=== PATIENT | female | born 1935 | race Caucasian/White ===

== ENCOUNTER 2016-12-23 12:57 | Inpatient (IN) | payer MEDICARE ==
[2016-12-23 12:59] VITALS: BMI 24.7
[2016-12-23] MEDS ORDERED: Sodium Chloride 0.9% 1,000 ML IV STA (13:16)
--- NOTE | 2016-12-23 13:19 | ED PDOC ---
Arrival/HPI - General Chief Complaint: Dizziness/Lightheaded Time Seen by Provider: 12/23/16 13:00 Historian: Patient, Family - History of Present Illness Narrative History of Present Illness (Text): 12/23/16 13:05 A 81 year old female, whose past medical history includes diabetes mellitus and rheumatoid arthritis, presents to the emergency department via EMS reportedly for near syncope. The patient reports she was at [employer] and she was standing when she felt suddenly weak and as per sisters at her side, "slumped to the chair with assistance" and was "staring out for a few minutes". No seizure activity reported. No respiratory distress noted. After "a few minutes" the patient was "speaking again and was acting herself just weak". Patient reports feeling weak on the way to [employer], and "possibly a little more tired over the past week". The patients sister admits that lately the patient has seem weaker than baseline and has been "a little out of it". The patient admits to having full memory of what occurred today and she denies any chest pain, headaches, shortness of breath, nausea, fevers, or any other complaints at this time. The patient sister notes that the patient does not always take her sugar medication. Time/Duration: Prior to Arrival Symptom Onset: Sudden Symptom Course: Other Activities at Onset: Light Context: Other (anabaptism ) Past Medical History - Provider Review Nursing Documentation Reviewed: Yes - Infectious Disease Hx of Infectious Diseases: None - Cardiac Hx Hypertension: Yes - Endocrine/Metabolic Hx Diabetes Mellitus Type 2: Yes - Musculoskeletal/Rheumatological Hx Arthritis: Yes - Psychiatric Hx Substance Use: No - Surgical History Hx Hysterectomy: Yes - Anesthesia Hx Anesthesia: Yes Hx Anesthesia Reactions: No Hx Malignant Hyperthermia: No Family/Social History - Physician Review Nursing Documentation Reviewed: Yes Family/Social History: Unknown Family HX Smoking Status: Never Smoked Hx Alcohol Use: No Hx Substance Use: No Allergies/Home Meds Allergies/Adverse Reactions: Allergies No Known Allergies Allergy (Verified 12/23/16 13:07) Home Medications: Home Meds Medication Instructions Recorded Confirmed Diclofenac Sodium [Voltaren] 75 mg PO BID PRN 12/23/16 12/23/16 Hydroxychloroquine Sulfate 200 mg PO BID 12/23/16 12/23/16 [Plaquenil] amLODIPine [Norvasc] 5 mg PO DAILY 12/23/16 12/23/16 hydroCHLOROthiazide [Microzide] 25 mg PO DAILY 12/23/16 12/23/16 metFORMIN [glucOPHAGE] 500 mg PO BID 12/23/16 12/23/16 Review of Systems - Review of Systems Constitutional: Fatigue, Fevers, Other (generalized weakness ) Eyes: absent: Vision Changes ENT: absent: Sore Throat, Rhinorrhea, Epistaxis, Sinus Congestion Respiratory: Cough. absent: SOB, Sputum, Wheezing Cardiovascular: Syncope. absent: Chest Pain, Calf Pain, CISNEROS Gastrointestinal: Nausea, Appetite Changes. absent: Abdominal Pain, Hematochezia, Hematemesis Genitourinary Female: absent: Dysuria, Frequency Musculoskeletal: absent: Back Pain Skin: absent: Rash Neurological: Dizziness. absent: Headache, Focal Weakness, Speech Changes, Disequilibrium, Seizure Endocrine: absent: Polyuria Hemo/Lymphatic: absent: Easy Bleeding Psychiatric: absent: Depression Physical Exam - Physical Exam Narrative Physical Exam (Text): 12/23/16 13:13 Head: Atraumatic. Normocephalic. Eyes: PERRL. EOMI. Conjunctivae are not pale. ENT: Mucous membranes are dry. Oropharynx is clear and symmetric. Neck: Supple. Full ROM. No JVD. No lymphadenopathy. No meningeal signs. Cardiovascular: Regular rate. Regular rhythm. Systolic murmur. Pulmonary/Chest: No evidence of respiratory distress. Clear to auscultation bilaterally. No wheezing, rales or rhonchi. Abdominal: Soft and non-distended. There is no tenderness. No rebound, guarding, or rigidity. No organomegaly. Good bowel sounds. No pulsatile masses. Back: No CVA tenderness. No midline tenderness. Rectal: no gross bleeding noted Extremities: No edema. No cyanosis. No clubbing. Full range of motion in all extremities. No calf tenderness. Skin: Skin is warm and dry. No petechiae. No purpura. Neurological: Alert, awake, and oriented to person, place, time, and situation. Normal speech. No facial droop. Motor and sensory exam intact. Psychiatric: Good eye contact. Normal interaction, affect, and behavior. Vital Signs Reviewed: Yes Vital Signs Temp Pulse Resp BP Pulse Ox 12/23/16 15:13 98.9 F 86 18 145/86 98 12/23/16 14:38 98.1 F 12/23/16 13:01 100.3 F H 104 H 19 129/67 99 Temperature: Febrile Appearance: Positive for: Ill-Appearing Pain Distress: None Mental Status: Positive for: Alert and Oriented X 3 Medical Decision Making ED Course and Treatment: 12/23/16 13:12 Impression: 81 yo female with pmhx of diabetes, presents with near syncope. Reports feeling weak for several days. Currently no pain or discomfort. Differential Diagnosis included but are not limited to: A 81 year old female with generalized weakness. Plan: -- EKG -- Venous Blood Gas Shock -- Labs -- Chest X-ray -- IV Fluids, Tylenol -- Blood Culture, Urine Culture -- Saline Lock -- Urinalysis -- Reassess and disposition Progress Notes: Patient is a 81 yo female past medical hx of diabetes, presents with sisters after near syncopal event at [employer]. Patient upon arrival to ED is alert, awake , with no focal deficits and is "acting like her normal self" as per sisters. Patient admits to feeling weak and "hot and cold" for "a few days". She has low grade fever in ED but is nontoxic appearing. Denies any prior history of known CAD or CVA. Her neuro exam is intact with serial exams. NO complete LOC reported. No symptomatic arrhythmias noted while in ED. EKG and initial troponin unremarkable. IV fluids and tylenol given and patient heart rate repeated is 88. CXR unremarkable. UA ? uti. IV antibitoics ordered. Initial lactate unremarkable and BP currently stable. Will admit for near syncope, possible UTI/infection. Given diabetes and episode will admit to monitored bed, consult cardio, neuro, and ID. Case d/w [facility] Burnham[facility] accepts admission to his service. 12/23/16 15:43 - Lab Interpretations Lab Results: 12/23/16 13:28 12/23/16 13:28 Lab Results 12/23/16 14:04: Urine Color Yellow, Urine Appearance Slight-cloudy, Urine pH 6.0 , Ur Specific [place] 1.025, Urine Protein 100 H, Urine Glucose (UA) Negative, Urine Ketones Trace H, Urine Blood Negative, Urine Nitrate Negative, Urine Bilirubin Small H, Urine Urobilinogen 1.0 H, Ur Leukocyte Esterase Small H, Urine RBC 0 - 2, Urine WBC 1 - 3, Ur Epithelial Cells 0 - 2 12/23/16 13:28: Sodium 137, Chloride 100, Potassium 3.9, Carbon Dioxide 23, Anion Gap 18, BUN 24 H, Creatinine 1.3, Est GFR ( Amer) 48, Est GFR (Non- Af Amer) 40, Random Glucose 212 H, Calcium 9.7, Phosphorus 2.9, Magnesium 1.7, Total Bilirubin 1.3, AST 24, ALT 24, Alkaline Phosphatase 99, Lactate Dehydrogenase 393, Total Creatine Kinase 37, Troponin I < 0.01, NT-Pro-B Natriuret Pep 404, Total Protein 8.2, Albumin 4.1, Globulin 4.1, Albumin/ Globulin Ratio 1.0 L 12/23/16 13:28: pO2 36, VBG pH 7.37, VBG pCO2 44.0, VBG HCO3 25.4, VBG Total CO2 26.8, VBG O2 Sat (Calc) 75.4 H, VBG Base Excess -0.1 L, VBG Potassium 4.0, Sodium 135.0, Chloride 101.0, Glucose 222 H, Lactate 1.7, FiO2 21.0, Venous Blood Potassium 4.0 12/23/16 13:28: PT 12.4 H, INR 1.15 H, APTT 30.7 12/23/16 13:28: WBC 8.7, RBC 3.89, Hgb 11.2 L, Hct 33.0 L, MCV 84.8, MCH 28.8, MCHC 33.9, RDW 13.0, Plt Count 123, MPV 11.7 H, Gran % 81.4 H, Lymph % (Auto) 10.4 L, [place] % (Auto) 6.6 H, Eos % (Auto) 1.4 L, Baso % (Auto) 0.2, Gran # 7.10 H, Lymph # 0.9 L, [place] # 0.6, Eos # 0.1, Baso # 0.02 12/23/16 13:13: POC Glucose (mg/dL) 232 H - RAD Interpretation Radiology Orders: 12/23/16 13:15 CHEST PORTABLE [RAD] Stat 12/23/16 13:40 HEAD W/O CONTRAST [CT] Stat Chair Springer: Radiologist - EKG Interpretation EKG Interpretation (Text): EKG at 13:18 normal sinus rhythm rate of [address] elevations Interpreted by ED Physician: Yes Type: 12 lead EKG - Medication Orders Current Medication Orders: Discontinued Medications Acetaminophen (Tylenol 325mg Tab) 650 mg PO ONCE STA Stop: 12/23/16 13:17 Last Admin: 12/23/16 13:38 Dose: 650 mg Re-Assess: JACKIE Pain/Vitals Document 12/23/16 14:38 EWO (Rec: 12/23/16 15:19 EWO [id number]) Vitals Temperature (97.6 F-99.6 F) 98.1 F Temperature Source Oral Sodium Chloride (Sodium Chloride 0.9%) 1,000 mls @ 1,000 mls/hr IV .Q1H STA Stop: 12/23/16 14:15 Last Admin: 12/23/16 13:38 Dose: 1,000 mls/hr Ceftriaxone Sodium (Rocephin 1 Gram Ivpb) 1 g in 100 mls @ 200 mls/hr IVPB ONCE STA PRN Reason: Protocol Stop: 12/23/16 15:18 - Scribe Statement The provider has reviewed the documentation as recorded by the Zeus Feliciano Provider Scribe Attestation: All medical record entries made by the Scribe were at my direction and personally dictated by me. I have reviewed the chart and agree that the record accurately reflects my personal performance of the history, physical exam, medical decision making, and the department course for this patient. I have also personally directed, reviewed, and agree with the discharge instructions and disposition. Disposition/Present on Arrival - Present on Arrival Any Indicators Present on Arrival: Yes History of DVT/PE: No History of Uncontrolled Diabetes: Yes Urinary Catheter: No History of Decub. Ulcer: No History Surgical Site Infection Following: None - Disposition Have Diagnosis and Disposition been Completed?: Yes Diagnosis: Near syncope, Hyperglycemia, Fever Disposition: HOSPITALIZED Disposition Time: 14:40 Patient Plan: Admission, Observation, Telemetry Condition: FAIR
--- NOTE | 2016-12-23 13:37 | RAD ---
HISTORY: Sepsis Patient COMPARISON: No prior. FINDINGS: LUNGS: No active pulmonary disease. PLEURA: No significant pleural effusion identified, no pneumothorax apparent. CARDIOVASCULAR: Normal. OSSEOUS STRUCTURES: No significant abnormalities. VISUALIZED UPPER ABDOMEN: Normal. OTHER FINDINGS: None. IMPRESSION: No active disease.
[2016-12-23 13:42] LABS: BASO # 0.02 K/mm3 (0.0-2.0); BASO % 0.2 % (0.0-3.0); EOS # 0.1 (0.0-0.7); EOS % 1.4 % (1.5-5.0); GRAN # 7.1 (1.4-6.5); GRAN % 81.4 % (50.0-68.0); LYMPH # 0.9 (1.2-3.4); LYMPH % 10.4 % (22.0-35.0); MEAN CELL VOLUME 84.8 fl (80.0-105.0); MEAN CORPUSCULAR HEMOGLOBIN 28.8 pg (25.0-35.0); MEAN CORPUSCULAR HGB CONC 33.9 g/dl (31.0-37.0); MEAN PLATELET VOLUME 11.7 fl (7.0-11.0); MONO # 0.6 (0.1-0.6); MONO % 6.6 % (1.0-6.0); VENOUS BLOOD GAS BASE EXCESS -0.1 mmol/L (0.0-2.0); VENOUS BLOOD PH 7.37 (7.32-7.43); WHITE BLOOD COUNT 8.7 10^3/ul (4.5-11.0)
[2016-12-23 13:54] LABS: ALKALINE PHOSPHATASE 99 U/L (38-126); ALT/SGPT 24 U/L (7-56); AST/SGOT 24 U/L (14-36); BILIRUBIN,TOTAL 1.3 mg/dL (0.2-1.3); BLOOD UREA NITROGEN 24 mg/dL (7-21); CALCIUM 9.7 mg/dL (8.4-10.5); CARBON DIOXIDE 23 mmol/L (21-33); CHLORIDE 100 mmol/L (98-107); GFR AFRICAN-AMERICAN 48; GLUCOSE,RANDOM 212 mg/dL (70-110); MAGNESIUM 1.7 mg/dL (1.7-2.2); PHOSPHOROUS 2.9 mg/dL (2.5-4.5); POTASSIUM 3.9 mmol/L (3.6-5.0); SODIUM 137 mmol/L (132-148); TOTAL PROTEIN 8.2 g/dL (5.8-8.3)
[2016-12-23 14:08] LABS: TROPONIN I < 0.01 ng/mL
[2016-12-23 14:16] LABS: URINE BILIRUBIN SMALL (NEGATIVE); URINE BLOOD NEGATIVE (NEGATIVE); URINE GLUCOSE (UA) NEGATIVE (NEGATIVE); URINE KETONE TRACE mg/dL (NEGATIVE); URINE LEUKOCYTE ESTERASE SMALL Leu/uL (NEGATIVE); URINE PROTEIN 100 mg/dL (<30 mg/dL)
[2016-12-23 14:20] LABS: URINE APPEARANCE SLIGHT-CLOUDY (CLEAR); URINE COLOR YELLOW (YELLOW)
--- NOTE | 2016-12-23 14:26 | CT ---
PROCEDURE: CT HEAD WITHOUT CONTRAST. HISTORY: near syncope COMPARISON: None available. TECHNIQUE: Axial computed tomography images were obtained through the head/brain without intravenous contrast. Radiation dose: Total exam DLP = 725 mGy-cm. This CT exam was performed using one or more of the following dose reduction techniques: Automated exposure control, adjustment of the mA and/or kV according to patient size, and/or use of iterative reconstruction technique. FINDINGS: HEMORRHAGE: No intracranial hemorrhage. BRAIN: No mass effect or edema. No atrophy or chronic microvascular ischemic changes. VENTRICLES: Unremarkable. No hydrocephalus. CALVARIUM: Unremarkable. PARANASAL SINUSES: Unremarkable as visualized. No significant inflammatory changes. MASTOID AIR CELLS: Unremarkable as visualized. No inflammatory changes. OTHER FINDINGS: None. IMPRESSION: No acute findings
[2016-12-23 14:27] LABS: URINE EPITHELIAL CELLS 0 - 2 /hpf (0-5); URINE RBC 0 - 2 /hpf (0-2)
[2016-12-23 14:34] LABS: INR 1.15 (0.93-1.08); PARTIAL THROMBOPLASTIN TIME 30.7 Seconds (23.7-30.8)
[2016-12-23] MEDS ORDERED: cefTRIAXone 1 gm 1 G/100 ML BAG IVPB STA (14:49)
[2016-12-23] MEDS ORDERED: Pneumococcal 23-Valent Vaccine IM ONE (18:18)
[2016-12-23] MEDS: Sodium Chloride 0.45% 1,000 ML IV SCH (22:03)
[2016-12-23] MEDS: Insulin Reg-HIGH-Coverage SC SCH (22:05)
--- NOTE | 2016-12-23 23:50 | CON ---
HISTORY OF PRESENT ILLNESS: This is a 81-year-old black female with a past medical history of diabetes, rheumatoid arthritis and came to hospital emergency room with sudden feeling of weakness and the patient's slumped in the chair and did not hit her head. No seizure activity. No urinary incontinence. The patient reports feeling weak on the way to [place] and possibly feels like tired and weak, did not lose consciousness. PAST MEDICAL HISTORY: Diabetes, rheumatoid arthritis. REVIEW OF SYSTEMS: Ten-point review of system was negative except as noted above. PHYSICAL EXAMINATION HEENT: Normocephalic, atraumatic. NECK: Supple. NEUROLOGIC: She is alert, awake and oriented x3. No aphasia. Cranial nerves II to XII are tested. Pupils reactive. EOM intact. Visual field full. No facial asymmetry. Tongue is midline. Motor examination: Moves all extremities equally. Tone normal. Deep tendon reflexes 1+. Both plantars are downgoing. Sensory appears intact. Cerebral: Gait deferred. IMPRESSION: Syncope, less likely seizure, possibly orthostatic. CAT scan of the head was done which was reported negative. Workup in progress. We will follow up. Sagar Dickson MD
--- NOTE | 2016-12-24 05:56 | CP.PCM.PN ---
Subjective - Date & Time of Evaluation Date of Evaluation: 12/24/16 Time of Evaluation: 05:56 - Subjective Subjective: draft Temp 100.8*F rx, tylenol as ordered. Objective - Vital Signs/Intake and Output Vital Signs (last 24 hours): Temp Pulse Resp BP Pulse Ox 100.2 F H 88 20 118/67 96 12/24/16 05:32 12/24/16 05:32 12/24/16 05:32 12/24/16 05:32 12/24/16 05:32 Intake and Output: 12/23/16 12/24/16 18:59 06:59 Intake Total 360 Balance 360 - Medications Medications: Current Medications Acetaminophen (Tylenol 325mg Tab) 650 mg PO Q4H PRN PRN Reason: Temperature Sodium Chloride (Sodium Chloride 0.45%) 1,000 mls @ 30 mls/hr IV .Q24H [facility] Last Admin: 12/23/16 22:03 Dose: 30 mls/hr Ceftriaxone Sodium (Rocephin 1 Gram Ivpb) 1 gm in 100 mls @ 100 mls/hr IVPB DAILY ROBERT PRN Reason: Protocol Insulin Human Regular (Humulin R High) 0 units SC ACHS ROBERT PRN Reason: Protocol Last Admin: 12/23/16 22:05 Dose: Not Given Metformin HCl (Glucophage) 500 mg PO BRKDIN ROBERT - Labs Labs: PT 12.4 Seconds (9.9-11.8) H 12/23/16 13:28 INR 1.15 (0.93-1.08) H 12/23/16 13:28 APTT 30.7 Seconds (23.7-30.8) 12/23/16 13:28
[2016-12-24] MEDS: Insulin Reg-HIGH-Coverage SC SCH ×4 (08:09→22:07)
[2016-12-24 08:56] LABS: HEMATOCRIT 31.5 % (36.0-48.0); MEAN CELL VOLUME 84.2 fl (80.0-105.0); MEAN CORPUSCULAR HEMOGLOBIN 28.3 pg (25.0-35.0); MEAN CORPUSCULAR HGB CONC 33.7 g/dl (31.0-37.0); RED CELL DISTRIBUTION WIDTH 12.9 % (11.5-14.5)
[2016-12-24 09:06] LABS: ALB/GLOB RATIO 0.9 (1.1-1.8); CALCIUM 9.2 mg/dL (8.4-10.5); POTASSIUM 4.1 mmol/L (3.6-5.0); TOTAL PROTEIN 7.5 g/dL (5.8-8.3)
[2016-12-24] MEDS ORDERED: Vancomycin 1gm in NS 250ml 1 GM/250 ML BAG IVPB STA (09:32)
[2016-12-24] MEDS: cefTRIAXone 1 gm 1 GM/100 ML BAG IVPB SCH (09:35)
--- NOTE | 2016-12-24 10:26 | HP ---
HISTORY OF PRESENT ILLNESS: I saw Sosa in her room at [facility]. I was called down to look at her by the ER. She comes in with a history of being at [employer], felt suddenly weak, slumped over, she was staring for few minutes, she was caught by family, it lasted a few minutes, she did not speak and started speaking again and acting herself but she was weak. She was also little bit tired over the past week, little out of it, but right now she is doing better, full memory, she is comfortable. PAST MEDICAL HISTORY: Include diabetes, rheumatoid arthritis, hypertension. PAST SURGICAL HISTORY: Has had hysterectomy. FAMILY HISTORY: Hypertension and diabetes in her family. SOCIAL HISTORY: She never smoked. No alcohol, no drugs. ALLERGIES: No known drug allergies. MEDICATIONS: She takes hydroxychloroquine for the arthritis, Norvasc for the blood pressure, hydrochlorothiazide and metformin for diabetes. REVIEW OF SYSTEMS: She is very tired. She had fevers, generalized weakness. No acute vision changes or hearing changes. No sore throat, no neck pain, no chest pain, calf pain. No shortness of breath with exertion. No palpitations. She had a little bit of a cough, but no coughing now and she said that it went away. No shortness of breath, sputum, or wheezing. She was little bit nauseous when this happened, little bit poor appetite but she has just finished eating dinner and she ate the whole plate. No abdominal pain, diarrhea, or constipation. No problems urinating. No back pain. No skin rashes or ulcers. She was a bit dizzy, kind was out of it. No headache or speech changes. She was staring for bit. No increase in urination. No sweating. No easy bleeding. No depression or anxiety. PHYSICAL EXAMINATION VITAL SIGNS: She had a 100.3 temp when she came in, with a 104 pulse, 19 respiratory rate, 129/67 blood pressure and 145/86 blood pressure, 99% O2 sat on room air. HEENT: Extraocular muscles are intact. Normocephalic and atraumatic. Pupils equal and reactive to light and accommodation. Conjunctivae are clear. Mucous membranes are moist at this time. No IV fluids, but when she came in, they were dry. NECK: Supple. HEART: Regular rate. 2/6 systolic ejection murmur. LUNGS: Clear to auscultation. Fair effort. No wheezes, no rhonchi, no rales. ABDOMEN: Soft, nontender. Positive bowel sounds. No guarding, no rebound. EXTREMITIES: No edema. She can use all four extremities well. Good range of motion. SKIN: Warm and dry. NEUROLOGIC: Alert, awake, and oriented x3 at this time. Normal speech. No facial droops. Tongue is midline. LYMPH: Thyroid midline. No palpable or appreciative lymphadenopathy. She had a near syncope, feeling weak for few days. LABORATORY DATA: She had multiple tests done. 8.7 white count, 11.2 hemoglobin, 33 hematocrit with 123 platelets. 1.15 INR, 137 sodium, potassium 3.9, BUN 24 little up, creatinine 1.3 little up, GFR is 40, sugar is 232 and 212, calcium is 9.7, phosphorus is 2.9, magnesium is 1.7, total bilirubin is 1.3, AST is 24, ALT is 24, alkaline phosphatase is 99, and lactic dehydrogenase is 393, total creatine kinase is 37. Troponin I is less than 0.01. BMP is 404, total protein is 3.2, albumin is 4.1. Urine has trace ketones, small leukocyte esterase. She reports head CT and chest x-ray were okay, is being put in for observation for near syncope, possible urinary tract infection, and history of diabetes and hypertension. I will put her on IV fluids of 30, put her on the diabetes medication, Rocephin for the urine. I am not going to put her on the blood pressure medicine yet unless blood pressure was 115/66 and feel that putting her back on medication of amlodipine, hydrochlorothiazide, which has made the situation worse, might be too strong for her at this time. We have urine cultures and blood cultures pending. She is presently comfortably in bed, ate dinner well, have IV fluids running, checking her blood sugars, will have consult with Neuro, Cardio and Infectious Disease. Rayray Burnham DO
--- NOTE | 2016-12-24 10:53 | PN ---
DATE: SUBJECTIVE: I saw her resting comfortably this morning in bed. She is still not herself. She still feels little bit off. Not much of an appetite, will be weak overall. PHYSICAL EXAMINATION: VITAL SIGNS: 100.8 temperature, 88 pulse, 118/67 blood pressure, 20 respiratory rate, 96% O2 sat on room air. GENERAL: She has come in and feel off and had to be caught due to her falling from a syncopal episode. She still not better. She states she is not feeling. She is on Rocephin for UTI. HEENT: Head is atraumatic, normocephalic. Throat is moist. NECK: Supple. HEART: Regular rate. LUNGS: Clear to auscultation. ABDOMEN: Soft. EXTREMITIES: No edema. MEDICATIONS: She is currently on Glucophage, insulin, Rocephin, IV fluids, Tylenol. LABORATORY DATA: She has labs pending this morning. Her last blood sugar was 187. She had a consult with Dr. Dickson. We will order a CAT scan of the brain which was fine and neurologically it could be orthostatic or infectious. Chest x-ray with no active disease. House doctor was called in to give Tylenol last night. Awaiting cardio and infectious disease to give the input. I did change her to an inpatient as opposed to because the temperature is persisting on IV Rocephin. I will increase IV fluids a little bit. I will order physical therapy. She looks weak. She might need different antibiotics. Awaiting for blood cultures and urine cultures to populate. ASSESSMENT: She is here for syncopal, urinary tract infection, diabetes, rule out sepsis. Rayray Burnham DO [facility]
--- NOTE | 2016-12-24 13:15 | CP.PCM.CON ---
History of Present Illness - History of Present Illness History of Present Illness: 81 year old female with PMH of DM, rheumatoid arthritis, HTN came in to [facility] because of generalized weakness and near syncope, which happened while she was in [employer]ism yesterday. Prior to this, she has been feeling more tired than usual for the past week and she started having dry cough since about 5-6 days ago, which has worsened in the past 2-3 days. She had chills as well. She denies sore throat, no no rhinorrhea, no abdominal pain, no dysuria, no nausea or vomiting, no headache, no chest pain, no diarrhea. In the ED, she was noted to have fever and Infectious diseases consult is requested to further evaluate and manage. Review of Systems - Review of Systems All systems: reviewed and no additional remarkable complaints except (as per HPI ) Past Patient History - Infectious Disease Hx of Infectious Diseases: None - Past Social History Smoking Status: Never Smoked - CARDIAC Hx Hypertension: Yes - ENDOCRINE/METABOLIC Hx Diabetes Mellitus Type 2: Yes - MUSCULOSKELETAL/RHEUMATOLOGICAL Hx Falls: No - PSYCHIATRIC Hx Substance Use: No - SURGICAL HISTORY Hx Hysterectomy: Yes - ANESTHESIA Hx Anesthesia: Yes Hx Anesthesia Reactions: No Hx Malignant Hyperthermia: No Meds Allergies/Adverse Reactions: Allergies Allergy/AdvReac Type Severity Reaction Status Date / Time No Known Allergies Allergy Verified 12/23/16 13:07 - Medications Medications: Current Medications Sodium Chloride (Sodium Chloride 0.45%) 1,000 mls @ 30 mls/hr IV .Q24H ROBERT Ceftriaxone Sodium (Rocephin 1 Gram Ivpb) 1 gm in 100 mls @ 100 mls/hr IVPB DAILY ROBERT PRN Reason: Protocol Insulin Human Regular (Humulin R High) 0 units SC ACHS ROBERT PRN Reason: Protocol Metformin HCl (Glucophage) 500 mg PO BRKDIN [facility] Physical Exam - Constitutional Appears: Non-toxic, No Acute Distress - Head Exam Head Exam: NORMAL INSPECTION - ENT Exam ENT Exam: Mucous Membranes Moist - Neck Exam Neck exam: Negative for: Lymphadenopathy, Meningismus - Respiratory Exam Respiratory Exam: Decreased Breath Sounds - Cardiovascular Exam Cardiovascular Exam: +S1, +S2 - GI/Abdominal Exam GI & Abdominal Exam: Soft. absent: Tenderness Results - Vital Signs Recent Vital Signs: Last Vital Signs Temp 99.4 F 12/23/16 18:07 Pulse 72 12/23/16 18:07 Resp 18 09/10/17 18:07 BP 115/66 12/23/16 18:07 Pulse Ox 98 12/23/16 15:13 - Labs Result Diagrams: 12/24/16 08:52 12/24/16 08:52 Assessment & Plan - Assessment and Plan (Free Text) Plan: Assessment Systemic Inflammatory Response Syndrome, fever R/O acute bronchitis, R/O systemic viral illness DM rheumatoid arthritis HTN Plan Started patient on Rocephin and doxycycline pending blood, urine cx, PCT; CXR does not show infiltrates, will check rapid Influenza test will monitor clinically
--- NOTE | 2016-12-24 17:23 | CARD ---
APPROVED REPORT EKG Measurement Heart [id number] <Conclusion> Poor data quality, interpretation may be adversely affected Normal sinus rhythm Normal ECG
[2016-12-24] MEDS: Sodium Chloride 0.45% 1,000 ML IV SCH (18:31)
--- NOTE | 2016-12-24 20:28 | US ---
HISTORY: Leg pain and swelling. Evaluate for DVT PHYSICIAN(S): Coleman Kingsley MD. TECHNIQUE: Duplex sonography and color-flow Doppler with graded compression were used to evaluate the deep venous systems of both lower extremities. FINDINGS: The visualized deep venous systems of both lower extremities are sonographically normal and compressible. Normal wave forms and augmentation are seen. There is no sonographic evidence for deep venous thrombosis in the visualized segments of both lower extremities. IMPRESSION: No sonographic evidence for deep venous thrombosis in the visualized segments of both lower extremities.
--- NOTE | 2016-12-24 21:22 | CP.PCM.CON ---
<Carl Almanza - Last Filed: 12/24/16 20:57> History of Present Illness - History of Present Illness History of Present Illness: Neurology Consult Note for Dr. Dickson Service Consulted for: near-syncope HPI: This is a 81 yo AA F with PMH of DM and RA who was brought to [facility] [place] after an episode of "spacing out" while in [employer]. As per patient, she was standing in a pew when the episode occurred, she retained consciousness but was unable to respond or react to stimuli and to others trying to speak to her, and began to slump. She was helped to a sitting position by surrounding family, and remained in this state for several minutes. She then became responsive again, and she reports only residual weakness, but denies numbness, dizziness, memory loss, or confusion. She does admit to feeling weak and somewhat fatigued prior to [facility]aritan that day, and her family reported in the ED that she has seemed "out of it" for the last several days. Currently, states that she feels improved, and has no acute complaints, including dizziness, weakness, lightheadedness, chest pain, shortness of breath, vision changes, focal weakness/paresthesias, or nausea/emesis. All other ROS in 12-point systems review were negative. 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 In the ED, and overnight, patient became febrile (Tmax 100.8F). UA was obtained and was suspicious for UTI. On repeat questioning, patient does report an increased urinary frequency for several days, but thought it was because she was drinking too much water. Denies dysuria or hematuria. PMH: DM, RA PSH: Hysterectomy FHx: Unknown (patient does not know of any medical hx parents had) SHx: Denies tobacco, EtOH, illicits/IVDA.' PMD: None Review of Systems - Review of Systems All systems: reviewed and no additional remarkable complaints except (as per HPI ) Past Patient History - Infectious Disease Hx of Infectious Diseases: None - Past Social History Smoking Status: Never Smoked - CARDIAC Hx Hypertension: Yes - ENDOCRINE/METABOLIC Hx Diabetes Mellitus Type 2: Yes - MUSCULOSKELETAL/RHEUMATOLOGICAL Hx Falls: No - PSYCHIATRIC Hx Substance Use: No - SURGICAL HISTORY Hx Hysterectomy: Yes - ANESTHESIA Hx Anesthesia: Yes Hx Anesthesia Reactions: No Hx Malignant Hyperthermia: No Meds Allergies/Adverse Reactions: Allergies Allergy/AdvReac Type Severity Reaction Status Date / Time No Known Allergies Allergy Verified 12/23/16 13:07 - Medications Medications: Current Medications Acetaminophen (Tylenol 325mg Tab) 650 mg PO Q4H PRN PRN Reason: Temperature Doxycycline Hyclate (Doryx) 100 mg PO Q12 ROBERT PRN Reason: Protocol Last Admin: 12/24/16 16:40 Dose: 100 mg Sodium Chloride (Sodium Chloride 0.45%) 1,000 mls @ 30 mls/hr IV .Q24H ROBERT Last Admin: 12/24/16 18:31 Dose: Not Given Ceftriaxone Sodium (Rocephin 1 Gram Ivpb) 1 gm in 100 mls @ 100 mls/hr IVPB DAILY ROBERT PRN Reason: Protocol Last Admin: 12/24/16 09:35 Dose: 100 mls/hr Insulin Human Regular (Humulin R High) 0 units SC ACHS ROBERT PRN Reason: Protocol Last Admin: 12/24/16 16:40 Dose: 4 units Metformin HCl (Glucophage) 500 mg PO BRKDIN ROBERT Last Admin: 12/24/16 16:40 Dose: 500 mg Physical Exam - Constitutional Appears: Well, Non-toxic, No Acute Distress - Head Exam Head Exam: ATRAUMATIC, NORMAL INSPECTION, NORMOCEPHALIC - Eye Exam Eye Exam: EOMI, Normal appearance, PERRL. absent: Conjunctival injection, Scleral icterus Pupil Exam: NORMAL ACCOMODATION, PERRL. absent: Fixed, Irregular, Unequal - ENT Exam ENT Exam: Mucous Membranes Moist, Normal Exam - Neck Exam Neck exam: Positive for: Full Rom, Normal Inspection. Negative for: Tenderness - Respiratory Exam Respiratory Exam: Clear to Auscultation Bilateral, NORMAL BREATHING PATTERN. absent: Accessory Muscle Use, Chest Wall Tenderness, Decreased Breath Sounds, Rales, Rhonchi, Wheezes - Cardiovascular Exam Cardiovascular Exam: REGULAR RHYTHM, RRR, +S1, +S2. absent: Bradycardia, Tachycardia, Irregular Rhythm, JVD - GI/Abdominal Exam GI & Abdominal Exam: Normal Bowel Sounds, Soft. absent: Diminished Bowel Sounds , Distended, Firm, Guarding, Hyperactive Bowel Sounds, Hypoactive Bowel Sounds, Rigid, Tenderness - Extremities Exam Extremities exam: Positive for: pedal pulses present (faintly palpable dorsalis pedis bilaterally, +1 radials bilaterally). 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 - Psychiatric Exam Psychiatric exam: Normal Affect, Normal Mood - Skin Skin Exam: Dry, Intact, Normal Color, Warm Results - Vital Signs Recent Vital Signs: Last Vital Signs Temp 97.9 F 12/24/16 12:00 Pulse 61 12/24/16 18:00 Resp 18 12/24/16 12:00 BP 125/75 12/24/16 12:00 Pulse Ox 96 12/24/16 06:00 - Labs Result Diagrams: 12/24/16 08:52 12/24/16 08:52 Labs: Laboratory Results - last 24 hr 12/24/16 12/24/16 12/24/16 08:52 08:52 12:28 WBC 7.0 RBC 3.74 Hgb 10.6 L Hct 31.5 L MCV 84.2 MCH 28.3 MCHC 33.7 RDW 12.9 Plt Count 124 MPV 11.0 Sodium 135 Potassium 4.1 Chloride 102 Carbon Dioxide 23 Anion Gap 14 BUN 22 H Creatinine 1.2 Est GFR ( Amer) 52 Est GFR (Non-Af Amer) 43 POC Glucose (mg/dL) 264 H Random Glucose 226 H Calcium 9.2 Total Bilirubin 1.0 AST 24 ALT 27 Alkaline Phosphatase 83 Total Protein 7.5 Albumin 3.5 Globulin 3.9 Albumin/Globulin Ratio 0.9 L Procalcitonin Influenza Typ A,B (EIA) 12/24/16 12/24/16 12/24/16 13:51 14:35 15:55 WBC RBC Hgb Hct MCV MCH MCHC RDW Plt Count MPV Sodium Potassium Chloride Carbon Dioxide Anion Gap BUN Creatinine Est GFR ( Amer) Est GFR (Non-Af Amer) POC Glucose (mg/dL) 200 H Random Glucose Calcium Total Bilirubin AST ALT Alkaline Phosphatase Total Protein Albumin Globulin Albumin/Globulin Ratio Procalcitonin 1.17 H Influenza Typ A,B (EIA) Negative for flu a/b Assessment & Plan - Assessment and Plan (Free Text) Assessment: This is a 81 yo AA F with PMH of DM and RA who was brought to [facility] [place] after a near- syncopal episode at her [employer]. Her symptoms are resolved currently. Her near-syncopal sx are most likely orthostatic 2/2 decreased PO fluid intake and 2/2 to infectious etiology (UTI). No neurologic component appears present, and head CT was negative for acute findings. Plan: 1) Maintain blood glucose 140-180 2) Gently hydrate 3) PT/OT 4) f/u urine culture results in setting of UTI with near-syncopal episodes; management as per ID and Primary team 5) Orthostatics Patient reviewed and discussed with attending, Dr. Dickson. <Ramon Dickson - Last Filed: 12/25/16 00:27> Meds - Medications Medications: Current Medications Acetaminophen (Tylenol 325mg Tab) 650 mg PO Q4H PRN PRN Reason: Temperature Last Admin: 12/24/16 22:57 Dose: 650 mg Doxycycline Hyclate (Doryx) 100 mg PO Q12 ROBERT PRN Reason: Protocol Last Admin: 12/24/16 22:07 Dose: 100 mg Sodium Chloride (Sodium Chloride 0.45%) 1,000 mls @ 30 mls/hr IV .Q24H ROBERT Last Admin: 12/24/16 18:31 Dose: Not Given Ceftriaxone Sodium (Rocephin 1 Gram Ivpb) 1 gm in 100 mls @ 100 mls/hr IVPB DAILY ROBERT PRN Reason: Protocol Last Admin: 12/24/16 09:35 Dose: 100 mls/hr Insulin Human Regular (Humulin R High) 0 units SC ACHS ROBERT PRN Reason: Protocol Last Admin: 12/24/16 22:07 Dose: Not Given Metformin HCl (Glucophage) 500 mg PO BRKDIN ROBERT Last Admin: 12/24/16 16:40 Dose: 500 mg Results - Vital Signs Recent Vital Signs: Last Vital Signs Temp 101.7 F H 12/25/16 00:01 Pulse 88 12/25/16 00:01 Resp 20 12/25/16 00:01 BP 118/74 12/25/16 00:01 Pulse Ox 95 12/25/16 00:01 - Labs Result Diagrams: 12/24/16 08:52 12/24/16 08:52 Labs: Laboratory Results - last 24 hr 12/24/16 12/24/16 12/24/16 08:52 08:52 12:28 WBC 7.0 RBC 3.74 Hgb 10.6 L Hct 31.5 L MCV 84.2 MCH 28.3 MCHC 33.7 RDW 12.9 Plt Count 124 MPV 11.0 Sodium 135 Potassium 4.1 Chloride 102 Carbon Dioxide 23 Anion Gap 14 BUN 22 H Creatinine 1.2 Est GFR ( Amer) 52 Est GFR (Non-Af Amer) 43 POC Glucose (mg/dL) 264 H Random Glucose 226 H Calcium 9.2 Total Bilirubin 1.0 AST 24 ALT 27 Alkaline Phosphatase 83 Total Protein 7.5 Albumin 3.5 Globulin 3.9 Albumin/Globulin Ratio 0.9 L Procalcitonin Influenza Typ A,B (EIA) 12/24/16 12/24/16 12/24/16 13:51 14:35 15:55 WBC RBC Hgb Hct MCV MCH MCHC RDW Plt Count MPV Sodium Potassium Chloride Carbon Dioxide Anion Gap BUN Creatinine Est GFR ( Amer) Est GFR (Non-Af Amer) POC Glucose (mg/dL) 200 H Random Glucose Calcium Total Bilirubin AST ALT Alkaline Phosphatase Total Protein Albumin Globulin Albumin/Globulin Ratio Procalcitonin 1.17 H Influenza Typ A,B (EIA) Negative for flu a/b Attending/Attestation - Attestation I have personally seen and examined this patient.: Yes I have fully participated in the care of the patient.: Yes I have reviewed all pertinent clinical information: Yes
--- NOTE | 2016-12-25 02:49 | CON ---
DATE OF CONSULTATION: 12/24/2016 HISTORY OF PRESENT ILLNESS: The patient is a 81-year-old woman who developed one episode of dizziness while walking. The patient denies chest pain, denies shortness of breath. No loss of consciousness noted. The patient is free of previous cardiac history. 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 No chest pain. No shortness of breath. SOCIAL HISTORY: No smoking noted. REVIEW OF SYSTEMS: A 14-point review of systems was free of cardiac symptoms. PHYSICAL EXAMINATION: VITAL SIGNS: Blood pressure 125/75, the heart rates in the 80s, normal sinus rhythm. NECK: Negative JVD. LUNGS: Without rales. HEART: S1 and S2. EXTREMITIES: Without edema. EKG shows normal sinus rhythm with nonspecific ST-T flattening. LABORATORY DATA: Hemoglobin is 10.6. Chemistries; troponin is negative x1 with the glucose of 226. IMPRESSION: 1. Near syncope. 2. No evidence of acute coronary syndrome. 3. Diabetes mellitus. 4. Anemia. 5. No previous cardiac history. Given these findings, we will obtain an echocardiogram. There is no cardiac arrhythmias noted. Coleman Mzt MD
[2016-12-25] MEDS: Insulin Reg-HIGH-Coverage SC SCH ×4 (08:25→22:14)
[2016-12-25 08:40] LABS: HEMATOCRIT 28.3 % (36.0-48.0); MEAN CELL VOLUME 83.7 fl (80.0-105.0); MEAN CORPUSCULAR HEMOGLOBIN 27.8 pg (25.0-35.0); MEAN CORPUSCULAR HGB CONC 33.2 g/dl (31.0-37.0); MEAN PLATELET VOLUME 11.3 fl (7.0-11.0); RED CELL DISTRIBUTION WIDTH 13.1 % (11.5-14.5)
[2016-12-25 08:51] LABS: ALB/GLOB RATIO 0.9 (1.1-1.8); ALKALINE PHOSPHATASE 85 U/L (38-126); ALT/SGPT 32 U/L (7-56); AST/SGOT 33 U/L (14-36); BILIRUBIN,TOTAL 0.5 mg/dL (0.2-1.3); BLOOD UREA NITROGEN 16 mg/dL (7-21); CALCIUM 8.8 mg/dL (8.4-10.5); CARBON DIOXIDE 23 mmol/L (21-33); CHLORIDE 104 mmol/L (98-107); GFR AFRICAN-AMERICAN > 60; GLUCOSE,RANDOM 125 mg/dL (70-110); POTASSIUM 3.8 mmol/L (3.6-5.0); SODIUM 137 mmol/L (132-148); TOTAL PROTEIN 6.8 g/dL (5.8-8.3)
[2016-12-25] MEDS: Sodium Chloride 0.45% 1,000 ML IV SCH ×2 (08:52→22:15)
--- NOTE | 2016-12-25 09:57 | PN ---
DATE: SUBJECTIVE: She is resting comfortably in bed. Little bit weak. Trying to eat better. No chest pain. No shortness of breath. No abdominal pain. Slept fairly well. PHYSICAL EXAMINATION: VITAL SIGNS: She has 98.5 temperature, 72 pulse, 115/77 blood pressure, 20 respiratory rate, 96% O2 sat on room air. HEENT: Head is atraumatic, normocephalic. Throat is moist. NECK: Supple. HEART: Regular rate. LUNGS: Clear to auscultation. ABDOMEN: Soft and nontender. Positive bowel sounds. EXTREMITIES: No edema. MEDICATIONS: She is currently on doxycycline, Glucophage was increased to 1000 mg twice a day from 500 mg twice a day, insulin coverage, Rocephin, IV fluids, Tylenol, she had a dose of vancomycin. LABORATORY DATA: Labs pending this morning. Her last blood sugar was high at 200. I increased her Glucophage. Her last white count was good at 7, hemoglobin was 10.6. Awaiting this morning for labs. ASSESSMENT AND PLAN: She is being seen by multiple physicians. Ultrasound of the lower extremities were normal. Infectious disease has her on IV antibiotics. Seen by neurology and cardiology. I am hoping for physical therapy to let me know whether they think she can go and she was weak when she got here. They are waiting for the DVT to be negative and it was, thus come back into an evaluation. The microbiology showed no growth in urine or blood. I will discuss this with infectious disease. Her vital signs showed a 101.7 temperature last night, this morning it was 98.5, so may be antibiotics are working, not sure why, but that is the first temperature that was below 100, we will take it and we will continue as per infectious disease. We will get physical therapy involve also. Sosa Phillips could be dealing with a metabolic encephalopathy, systemic inflammatory response syndrome, near syncope, urinary tract infection, diabetes. Checking her labs. Rayray Burnham DO
[2016-12-25] MEDS ORDERED: Barium Sulfate Susp 2.1% w/v, 2.0% w/w 450 mL Bottle PO ONE (10:41)
[2016-12-25] MEDS: cefTRIAXone 1 gm 1 GM/100 ML BAG IVPB SCH (12:05)
[2016-12-25] MEDS: POLYETHYLENE GLYCOL 3350 17 GM/Dose PACKET PO SCH (12:06)
--- NOTE | 2016-12-25 15:26 | CT ---
PROCEDURE: CT Chest, Abdomen and Pelvis without intravenous contrast HISTORY: fever COMPARISON: None. TECHNIQUE: Radiation dose: Total exam DLP = 771 mGy-cm. This CT exam was performed using one or more of the following dose reduction techniques: Automated exposure control, adjustment of the mA and/or kV according to patient size, and/or use of iterative reconstruction technique. FINDINGS: CT CHEST WITHOUT CONTRAST: LUNGS: There is an alveolar infiltrate in the right lower lobe especially the superior segment. Air bronchograms are seen. Findings are consistent with pneumonia. MEDIASTINUM: Unremarkable. Normal caliber aorta and pulmonary arterial trunk. Normal size heart. LYMPH NODES: Unremarkable. PLEURA: Unremarkable. No pneumothorax. No pleural fluid. BONES: Unremarkable. OTHER FINDINGS: None. CT ABDOMEN AND PELVIS: LIVER: Unremarkable. No gross lesion or ductal dilatation. GALLBLADDER AND BILE DUCTS: Unremarkable. PANCREAS: Unremarkable. No gross lesion or ductal dilatation. SPLEEN: Unremarkable. ADRENALS: Unremarkable. No mass. KIDNEYS AND URETERS: Unremarkable. No hydronephrosis. No solid mass. VASCULATURE: Unremarkable. No aortic aneurysm. BOWEL: Unremarkable. No obstruction. No gross mural thickening. APPENDIX: Normal appendix. PERITONEUM: Unremarkable. No free fluid. No free air. LYMPH NODES: Unremarkable. No enlarged lymph nodes. BLADDER: Unremarkable. REPRODUCTIVE: Unremarkable. 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 IMPRESSION: Right lower lobe pneumonia
--- NOTE | 2016-12-25 15:34 | PN ---
DATE: 12/25/2016 SUBJECTIVE: The patient is seen in bed this morning in 272, bed 1. She does have fevers earlier last night and this morning. PHYSICAL EXAMINATION: VITAL SIGNS: Temperature is 98.5, T-max is 101.7, blood pressure is 115/70, respiratory rate of 20, and heart rate of 72. HEENT: Unremarkable. NECK: Supple. LUNGS: Decreased breath sounds. HEART: Normal S1 and S2. ABDOMEN: Soft and nontender. LABORATORY DATA: Reveals a white count of 6, hemoglobin of 9, platelets of 131, BUN of 16, creatinine 1.0, and procalcitonin is 1.1. Urinalysis is noted and influenza is negative. Microbiology reveals blood cultures are negative. Urine cultures are negative. The patient had an ultrasound of the extremity. No evidence of DVT in both lower extremities. Dr. Burnham's note is reviewed. ASSESSMENT AND PLAN: A 81-year-old female with diabetes, rheumatoid arthritis, hypertension with systemic inflammatory response syndrome with fever, etiology of which is not clear. Did have a fever of 101 yesterday, on Rocephin and doxycycline. Negative influenza. Negative blood cultures. Negative urine cultures. Elevated procalcitonin of 1.17 with a chest x-ray, which is no active lung disease. We will order CAT scan of the chest, abdomen and pelvis to determine the etiology of this persistent fever. Rayshawn Trujillo MD
--- NOTE | 2016-12-25 17:52 | PN ---
DATE: 12/25/2016 SUBJECTIVE: The patient is chest pain free. Her anemia is being worked up. PHYSICAL EXAMINATION VITAL SIGNS: Blood pressure is 132/80, heart rates in the 80s. NECK: Negative JVD. LUNGS: Without rales. HEART: Reveals S1 and S2. EXTREMITIES: Without edema. LABORATORY DATA: Hemoglobin is 9.4. Chemistry: Glucose is 125. Troponins negative. IMPRESSION: 1. Atypical chest pain. 2. Diabetes mellitus. 3. Marked anemia. 4. Dark stools in the past. 5. Dizziness. PLAN: Given these findings, the patient is for GI workup today. Echocardiogram is pending. Coleman Mtz MD
[2016-12-26 01:07] VITALS: RESP 20; O2SAT 98
[2016-12-26 06:16] VITALS: PULSE 79; TEMP 98.5
[2016-12-26 06:24] VITALS: BP 128/76
[2016-12-26 07:39] LABS: HEMATOCRIT 27.2 % (36.0-48.0); MEAN CELL VOLUME 83.4 fl (80.0-105.0); MEAN CORPUSCULAR HEMOGLOBIN 27.9 pg (25.0-35.0); MEAN CORPUSCULAR HGB CONC 33.5 g/dl (31.0-37.0); RED CELL DISTRIBUTION WIDTH 13.2 % (11.5-14.5); WHITE BLOOD COUNT 4.7 10^3/ul (4.5-11.0)
[2016-12-26] MEDS: Insulin Reg-HIGH-Coverage SC SCH (07:42)
[2016-12-26 07:48] LABS: ALB/GLOB RATIO 0.9 (1.1-1.8); ALKALINE PHOSPHATASE 69 U/L (38-126); ALT/SGPT 30 U/L (7-56); AST/SGOT 37 U/L (14-36); BILIRUBIN,TOTAL 0.4 mg/dL (0.2-1.3); BLOOD UREA NITROGEN 13 mg/dL (7-21); CALCIUM 8.5 mg/dL (8.4-10.5); CARBON DIOXIDE 21 mmol/L (21-33); CHLORIDE 104 mmol/L (98-107); GFR AFRICAN-AMERICAN > 60; GLUCOSE,RANDOM 109 mg/dL (70-110); POTASSIUM 3.8 mmol/L (3.6-5.0); SODIUM 134 mmol/L (132-148); TOTAL PROTEIN 6.4 g/dL (5.8-8.3)
[2016-12-26] MEDS: cefTRIAXone 1 gm 1 GM/100 ML BAG IVPB SCH (09:05)
[2016-12-26] MEDS: POLYETHYLENE GLYCOL 3350 17 GM/Dose PACKET PO SCH (09:05)
--- NOTE | 2016-12-26 09:42 | PN ---
CARDIOLOGY FOLLOWUP DATE: 12/26/2016 SUBJECTIVE: The patient is in bed. She has been up without chest pain and without shortness of breath. OBJECTIVE: VITAL SIGNS: Blood pressure is 128/76 and heart rate in the 80s. NECK: Negative JVD. LUNGS: Without rales. HEART: S1 and S2. EXTREMITIES: Without edema. LABORATORY DATA: Hemoglobin is 9.1. Chemistries, glucose is 125. IMPRESSION: 1. Resolution of chest pain. 2. Anemia. 3. Diabetes mellitus. 4. History of dark stools. 5. Dizziness, which is now resolved. PLAN: Given these findings, the patient is for echocardiogram. If the echocardiogram is unremarkable with no LV outflow obstruction, the patient can be discharged. We will arrange for an outpatient stress test given the patient's cardiac risk factors. Coleman Mtz MD
--- NOTE | 2016-12-26 16:24 | CARD ---
APPROVED REPORT EXAM: Two-dimensional and M-mode echocardiogram with Doppler and color Doppler. INDICATION Syncope 2D DIMENSIONS Left Atrium (2D)3.4 (1.6-4.0cm)IVSd1.0 (0.7-1.1cm) LVDd3.6 (3.9-5.9cm)PWd1.0 (0.7-1.1cm) LVDs2.6 (2.5-4.0cm)FS (%) 27.8 % LVEF (%)54.9 (>50%) M-Mode DIMENSIONS Aortic Root2.70 (2.2-3.7cm)Aortic Cusp Exc.1.60 (1.5-2.0cm) Aortic Valve AoV Peak Mgzbzowh310.0cm/Dottie Peak GR.11mmHg Mitral Valve E/A ratio0.0 TDI E/Lateral E'0.0E/Medial E'0.0 Tricuspid Valve TR Peak [id number] [id number] Peak Gr.14mmHg [id number] LEFT VENTRICLE The left ventricle is normal size. There is normal left ventricular wall thickness. The left ventricular function is normal. The left ventricular ejection fraction is within the normal range. There is normal LV segmental wall motion. Transmitral Doppler flow pattern is Grade I-abnormal relaxation pattern. RIGHT VENTRICLE The right ventricle is normal size. There is normal right ventricular wall thickness. The right ventricular systolic function is normal. ATRIA The left atrium size is normal. The right atrium size is normal. AORTIC VALVE The aortic valve is not well visualized. There is trace to mild aortic regurgitation. MITRAL VALVE Mitral regurgitation is mild. TRICUSPID VALVE There is trace tricuspid regurgitation. There is no pulmonary hypertension. GREAT VESSELS The ascending aorta is Mildly dilated. The IVC is normal in size and collapses >50% with inspiration. PERICARDIAL EFFUSION There is no pericardial effusion. <Conclusion> The left ventricle is normal size. There is normal left ventricular wall thickness. The left ventricular function is normal. The left ventricular ejection fraction is within the normal range. There is normal LV segmental wall motion. Transmitral Doppler flow pattern is Grade I-abnormal relaxation pattern. There is trace to mild aortic regurgitation. Mitral regurgitation is mild. The ascending aorta is Mildly dilated.
--- NOTE | 2016-12-27 06:38 | DS ---
HISTORY OF PRESENT ILLNESS: Sosa is resting comfortably in bed. She is getting up and walking around. She is eating. She is breathing well. No chest pain. No shortness of breath. No abdominal pain. She is in good spirits. PHYSICAL EXAMINATION: VITAL SIGNS: Her vital signs are 98.5 temp, 79 pulse, 120/76 blood pressure, 20 respiratory rate and 90% O2 sat on room air. HEENT: Head is atraumatic and normocephalic. HEART: Regular rate. LUNGS: Clear to auscultation. ABDOMEN: Soft. EXTREMITIES: No edema. MEDICATIONS: She is going to go home on Colace, Glucophage, MiraLax, and Levaquin 500 mg daily for 8 days. LABORATORY DATA: She has 4.7 white count, 9.1 hemoglobin, 27.2 hematocrit with 132 platelets. She does have 135 sodium, potassium 4.1, blood sugar was 212, calcium is 9.2, total bilirubin is 1, AST is 24, ALT is 27 and alkaline phosphatase is 83. Result that she had a CAT scan of left lower lobe pneumonia, which her chest x-ray did not show that was the reason for her infection. ASSESSMENT AND PLAN: Hopefully, this will get her better. She will followup with doctors in the next 24 to 48 hours and she is being discharged. I discussed this with infectious disease this morning Dr. Apodaca and it is okay for to be discharge. Also cardiology said she can be discharged too. The patient had left pneumonia, change in mentation, but now she is much better. Rayray Burnham DO
== END 2016-12-26 11:09 | disposition home or self-care (01) | DRG 193 ==
LOC: ED 12:57 → ERH 15:03 → 2RSO 16:12 → OBSVTOIN 12-24 08:32
PROVIDERS: ADMIT Family Medicine; ATTEND Family Medicine
DX: J18.9 Pneumonia, unspecified organism (principal); G93.41 Metabolic encephalopathy; R65.10 Systemic inflammatory response syndrome (SIRS) of non-infectious origin without acute organ dysfunction; E11.65 Type 2 diabetes mellitus with hyperglycemia; N39.0 Urinary tract infection, site not specified; D64.9 Anemia, unspecified; I10 Essential (primary) hypertension; M06.9 Rheumatoid arthritis, unspecified; R56.9 Unspecified convulsions; Z79.899 Other long term (current) drug therapy; Z82.49 Family history of ischemic heart disease and other diseases of the circulatory system; Z83.3 Family history of diabetes mellitus; Z90.710 Acquired absence of both cervix and uterus; M19.90 Unspecified osteoarthritis, unspecified site; I95.1 Orthostatic hypotension; R07.89 Other chest pain

== ENCOUNTER 2017-01-09 12:00 | Emergency (ER) | payer MEDICARE ==
[2017-01-09 12:05] VITALS: BMI 23.0
[2017-01-09] MEDS ORDERED: Sodium Chloride 0.9% 1,000 ML IV SCH (12:45)
--- NOTE | 2017-01-09 13:00 | ED PDOC ---
Arrival/HPI <Chang Flower - Last Filed: 01/09/17 14:19> <Joni Morales - Last Filed: 01/11/17 09:19> - General Chief Complaint: Syncope Time Seen by Provider: 01/09/17 12:14 - History of Present Illness Narrative History of Present Illness (Text): 81 year old female with a past medical history of DM and hypertension who presents with weakness and two syncopal episodes while standing outside, waiting for the [facility] doors to open. The patient denies any chest pain, palpitations, or lost of consciousness in relation to the event. Important to note, the patient was recently discharged on 12/26/16 for pneumonia and sent home with an 8 day course of Levaquin. She denies any cough, fever, chills, or shortness of breath. 01/09/17 12:55 01/09/17 14:35 (Chang Flower) Past Medical History - Provider Review Nursing Documentation Reviewed: Yes - Infectious Disease Hx of Infectious Diseases: None - Cardiac Hx Cardiac Disorders: Yes Hx Hypertension: Yes - Pulmonary Hx Chronic Obstructive Pulmonary Disease (COPD): No - Neurological Hx Meningitis: No - HEENT Hx Sinusitis: No - Endocrine/Metabolic Hx Diabetes Mellitus Type 2: Yes - Hematological/Oncological Hx Leukemia: No - Integumentary Hx Squamous Cell Carcinoma: No - Musculoskeletal/Rheumatological Hx Falls: No - Gastrointestinal Hx Hemorrhoids: No - Genitourinary/Gynecological Hx Bladder Cancer: No - Psychiatric Hx Substance Use: No - Surgical History Hx Hysterectomy: Yes - Anesthesia Hx Anesthesia: Yes Hx Anesthesia Reactions: No Hx Malignant Hyperthermia: No <Chang Flower - Last Filed: 01/09/17 14:19> Family/Social History - Physician Review Nursing Documentation Reviewed: Yes Family/Social History: No Known Family HX Smoking Status: Never Smoked Hx Alcohol Use: No Hx Substance Use: No <Chang Flower - Last Filed: 01/09/17 14:19> Allergies/Home Meds <Chang Flower - Last Filed: 01/09/17 14:19> <Joni Morales - Last Filed: 01/11/17 09:19> Allergies/Adverse Reactions: Allergies No Known Allergies Allergy (Verified 01/09/17 12:05) Home Medications: Home Meds Medication Instructions Recorded Confirmed Diclofenac Sodium [Voltaren] 75 mg PO BID PRN 12/23/16 01/09/17 Hydroxychloroquine Sulfate 200 mg PO BID 12/23/16 01/09/17 [Plaquenil] Hydrochlorothiazide [Microzide] 25 mg PO DAILY 01/09/17 01/09/17 Review of Systems - Review of Systems Constitutional: absent: Fatigue, Fevers Eyes: absent: Vision Changes ENT: absent: Hearing Changes, Voice Changes Respiratory: absent: SOB, Sputum Cardiovascular: absent: Chest Pain, Palpitations Gastrointestinal: Other (dyspepsia) Genitourinary Female: absent: Dysuria Musculoskeletal: Arthralgias Skin: absent: Pruritis, Skin Lesions Neurological: absent: Headache, Focal Weakness, Gait Changes Endocrine: absent: Diaphoresis, Polyuria Hemo/Lymphatic: absent: Easy Bleeding, Easy Bruising Psychiatric: absent: Anxiety, Depression <Chang Flower - Last Filed: 01/09/17 14:19> Physical Exam Vital Signs Reviewed: Yes Temperature: Afebrile Blood Pressure: Normal Pulse: Regular Respiratory Rate: Normal Appearance: Positive for: Non-Toxic Pain Distress: None Finger Stick Blood Glucose: 136 - Systems Exam Head: Present: Atraumatic, Normocephalic Pupils: Present: PERRL Extroacular Muscles: Present: EOMI Conjunctiva: Present: Normal Respiratory/Chest: Present: Decreased Breath Sounds (left lung base). No: Wheezes, Rales Cardiovascular: Present: Regular Rate and Rhythm, Normal S1, S2 Abdomen: Present: Normal Bowel Sounds. No: Distention, Rebound, Guarding Upper Extremity: Present: Normal Inspection. No: Edema Lower Extremity: Present: Normal Inspection. No: Edema, CALF TENDERNESS Neurological: Present: CN II-XII Intact, Speech Normal Skin: Present: Warm, Dry, Normal Color Psychiatric: Present: Alert, Oriented x 3, Normal Insight <Chang Flower - Last Filed: 01/09/17 14:19> Vital Signs Temp Pulse Resp BP Pulse Ox 01/09/17 14:08 98 F 73 18 120/44 L 96 01/09/17 12:00 98.1 F 72 16 124/51 L 100 Medical Decision Making <Chang Flower - Last Filed: 01/09/17 14:19> - Lab Interpretations I have reviewed the lab results: Yes Interpretation: All labs normal - RAD Interpretation Mortgage Loan Counselor: ED Physician <Joni Morales - Last Filed: 01/11/17 09:19> ED Course and Treatment: 81 year old female with a past medical history of DM and hypertension who presents with 2 syncopal episodes while standing outside, waiting for the [facility] doors to open. Patient was recently in the hospital for similar symptoms and found to have a pneumonia. She was discharged on 12/26/2016 with an 8 day course of Levaquin. On admission, EKG showed normal sinus rhythm. CBC, CMP, and VBG were all within normal limits, aside from a blood glucose of 152. Portable chest X-ray showed No active disease Patient started on 125 ml/hr of NS for presumed dehydration. Supine, seated and standing orthostatic blood presures were 121/60, 110/68, and 111/71, respectively. Patient denied any symptoms with positional changes. 01/09/17 13:34 Patient agreeable to outpatient follow up with PMD and scheduled outpatient stress test. 01/09/17 14:20 (Chang Flower) 81 yo female with h/o DM, HTN, presents to the ED because while at [facility] she felt like she was going to pass out. This happened twice. She was not unconscious but felt by lightheaded. Agree with resident note with the exception of a description of more of a pre-syncope. Agree with physical, assessment and plan. Patient comfortable after reevaluation and IVF. She has not kept well hydrated at home as per patient and family at bedside. She also was standing in the heat. Patient was recently admitted and worked up for similar symptoms associated with dehydration and after rehydration this visit she feels completely better. She had close follow up with her PMD. I called Dr. Burnham her PMD who agreed that patient can be discharged home and can follow up with her already scheduled stress test tomorrow. Family and patient agree with plan and will make sure to follow up. Also were advised to return to the ED if symptoms worsen or any other concerns. (Joni Morales) - Lab Interpretations Lab Results: 01/09/17 13:00 01/09/17 13:00 Lab Results 01/09/17 13:19: pO2 31, VBG pH 7.35, VBG pCO2 51.0, VBG HCO3 28.2 H, VBG Total CO2 29.8 H, VBG O2 Sat (Calc) 74.2 H, VBG Base Excess 1.7, VBG Potassium 4.5, Glucose 158 H, Lactate 1.0, FiO2 21.0, Sodium 135.0, Chloride 101.0, Venous Blood Potassium 4.5 01/09/17 13:00: Sodium 135, Potassium 3.9, Chloride 98, Carbon Dioxide 25, Anion Gap 16, BUN 21, Creatinine 1.1, Est GFR ( Amer) 58, Est GFR (Non- Af Amer) 48, Random Glucose 152 H, Calcium 10.0, Total Bilirubin 0.9, AST 34, ALT 24, Alkaline Phosphatase 77, Troponin I < 0.01, Total Protein 8.1, Albumin 4.4, Globulin 3.7, Albumin/Globulin Ratio 1.2 01/09/17 13:00: WBC 4.3 L, RBC 3.95, Hgb 11.3 L D, Hct 33.1 L, MCV 83.8, MCH 28.6, MCHC 34.1, RDW 13.7, Plt Count 184, MPV 11.0, Gran % 41.5 L, Lymph % (Auto ) 40.9 H, [place] % (Auto) 5.8, Eos % (Auto) 11.1 H, Baso % (Auto) 0.7, Gran # 1.80 , Lymph # 1.8, [place] # 0.3, Eos # 0.5, Baso # 0.03 - RAD Interpretation Radiology Orders: 01/09/17 12:47 CHEST PORTABLE [RAD] Stat - Medication Orders Current Medication Orders: Discontinued Medications Sodium Chloride (Sodium Chloride 0.9%) 1,000 mls @ 125 mls/hr IV .Q8H ROBERT Last Admin: 01/09/17 12:51 Dose: 125 mls/hr eMAR Start Stop Document 01/09/17 12:51 AD (Rec: 01/09/17 12:51 [place] [facility] [id number] Intravenous Solution Start Date 01/09/17 Start Time 12:51 Disposition/Present on Arrival - Present on Arrival Any Indicators Present on Arrival: Yes History of DVT/PE: No History of Uncontrolled Diabetes: Yes Urinary Catheter: No History of Decub. Ulcer: No History Surgical Site Infection Following: None - Disposition Have Diagnosis and Disposition been Completed?: Yes Disposition Time: 13:51 Patient Plan: Discharge <Chang Flowre - Last Filed: 01/09/17 14:19> <Joni Morales - Last Filed: 01/11/17 09:19> - Disposition Diagnosis: Near syncope Disposition: HOME/ ROUTINE Condition: IMPROVED Discharge Instructions (ExitCare): Near Syncope (ED) Additional Instructions: [Ms. Phillips], thank you for letting us take care of you today. Your provider was [Dr. Morales and Dr. Flower]. You were treated for [Near Syncope]. The emergency medical care you received today was directed at your acute symptoms. If you were prescribed any medication, please fill it and take as directed. It may take several days for your symptoms to resolve. Return to the Emergency Department if your symptoms worsen, do not improve, or if you have any other problems. Please contact your doctor or call one of the physicians/clinics you have been referred to that are listed on the Patient Visit Information form that is included in your discharge packet. Bring any paperwork you were given at discharge with you along with any medications you are taking to your follow up visit. Our treatment cannot replace ongoing medical care by a primary care provider (PCP) outside of the emergency department. Thank you for allowing the [facility] team to be part of your care today. Please follow up for your scheduled , out-patient stress test. If you had an X-Ray or CT scan: A Radiologist will review the ED reading if any change in treatment is needed we will contact you. If you had a blood, urine, or wound culture: It will take several days for the results, if any change in treatment is needed we will contact you. If you had an STI test: It will take 48 hours for the results. Please call after 1 week if you have not heard back. Referrals: Rayray Burnham DO [Staff Provider] - Follow up with primary Forms: [employer] ([place]ian)
[2017-01-09 13:11] LABS: BASO # 0.03 K/mm3 (0.0-2.0); BASO % 0.7 % (0.0-3.0); EOS # 0.5 (0.0-0.7); EOS % 11.1 % (1.5-5.0); GRAN # 1.8 (1.4-6.5); GRAN % 41.5 % (50.0-68.0); HEMATOCRIT 33.1 % (36.0-48.0); LYMPH # 1.8 (1.2-3.4); LYMPH % 40.9 % (22.0-35.0); MEAN CELL VOLUME 83.8 fl (80.0-105.0); MEAN CORPUSCULAR HEMOGLOBIN 28.6 pg (25.0-35.0); MEAN CORPUSCULAR HGB CONC 34.1 g/dl (31.0-37.0); MONO # 0.3 (0.1-0.6); MONO % 5.8 % (1.0-6.0); RED CELL DISTRIBUTION WIDTH 13.7 % (11.5-14.5); WHITE BLOOD COUNT 4.3 10^3/ul (4.5-11.0)
--- NOTE | 2017-01-09 13:15 | RAD ---
HISTORY: r/o pneumonia COMPARISON: 12/23/2016 FINDINGS: LUNGS: No active pulmonary disease. PLEURA: No significant pleural effusion identified, no pneumothorax apparent. CARDIOVASCULAR: Normal. Aortic knob atherosclerotic vascular calcification-unchanged OSSEOUS STRUCTURES: No significant abnormalities. VISUALIZED UPPER ABDOMEN: Normal. OTHER FINDINGS: None. IMPRESSION: No active disease.
[2017-01-09 13:19] LABS: ALB/GLOB RATIO 1.2 (1.1-1.8); ALKALINE PHOSPHATASE 77 U/L (38-126); ALT/SGPT 24 U/L (7-56); AST/SGOT 34 U/L (14-36); BILIRUBIN,TOTAL 0.9 mg/dL (0.2-1.3); BLOOD UREA NITROGEN 21 mg/dL (7-21); CARBON DIOXIDE 25 mmol/L (21-33); CHLORIDE 98 mmol/L (98-107); GFR AFRICAN-AMERICAN 58; GLUCOSE,RANDOM 152 mg/dL (70-110); POTASSIUM 3.9 mmol/L (3.6-5.0); SODIUM 135 mmol/L (132-148); TOTAL PROTEIN 8.1 g/dL (5.8-8.3)
[2017-01-09 13:22] LABS: VENOUS BLOOD GAS BASE EXCESS 1.7 mmol/L (0.0-2.0); VENOUS BLOOD PH 7.35 (7.32-7.43)
[2017-01-09 13:32] LABS: TROPONIN I < 0.01 ng/mL
[2017-01-09 14:09] VITALS: BP 120/44; PULSE 73; RESP 18; TEMP 98; O2SAT 96
--- NOTE | 2017-01-10 08:23 | CARD ---
APPROVED REPORT EKG Measurement Heart [id number] MA [id number] <Conclusion> Normal sinus rhythm Mild ST elevation 1, AVL, probably early repolarization No change
== END 2017-01-09 14:09 | disposition home or self-care (01) ==
LOC: ED 12:00
DX: R55 Syncope and collapse (principal); I10 Essential (primary) hypertension; E11.9 Type 2 diabetes mellitus without complications
CPT/HCPCS: 71010; 80053; 82803; 84484; 85025; 93005; 99285; J7040

== ENCOUNTER 2017-03-25 05:56 | Day surgery (SDC) | payer MEDICARE ==
[2017-03-21 12:31] VITALS: BMI 23.6
[2017-03-25 07:01] LABS: BASO # 0.02 K/mm3 (0.0-2.0); BASO % 0.5 % (0.0-3.0); EOS # 0.2 (0.0-0.7); EOS % 4.8 % (1.5-5.0); GRAN # 1.66 (1.4-6.5); GRAN % 44.3 % (50.0-68.0); HEMATOCRIT 33.8 % (36.0-48.0); LYMPH # 1.6 (1.2-3.4); LYMPH % 43.7 % (22.0-35.0); MEAN CORPUSCULAR HEMOGLOBIN 28.2 pg (25.0-35.0); MEAN CORPUSCULAR HGB CONC 32.2 g/dl (31.0-37.0); MEAN PLATELET VOLUME 11.2 fl (7.0-11.0); MONO # 0.3 (0.1-0.6); MONO % 6.7 % (1.0-6.0); RED CELL DISTRIBUTION WIDTH 13.3 % (11.5-14.5); WHITE BLOOD COUNT 3.8 10^3/ul (4.5-11.0)
[2017-03-25 07:02] LABS: MEAN CELL VOLUME 87.6 fl (80.0-105.0)
[2017-03-25 07:09] LABS: INR 1.12 (0.93-1.08); PARTIAL THROMBOPLASTIN TIME 28.4 Seconds (25.1-36.5)
[2017-03-25 07:14] LABS: CALCIUM 10.4 mg/dL (8.4-10.5); POTASSIUM 4.4 mmol/L (3.6-5.0)
[2017-03-25] MEDS ORDERED: Lidocaine 2% Inj (20ml) ONE (07:19)
[2017-03-25] MEDS ORDERED: Phenylephrine 10 mg/ml Inj ONE (07:19)
[2017-03-25 07:24] VITALS: RESP 18
[2017-03-25] MEDS ORDERED: Iodixanol 320 MG/ML 100 ML BOTTLE IV ONE (07:34)
[2017-03-25] MEDS ORDERED: Iodixanol 320 MG/ML 200 ML BOTTLE IV ONE (07:34)
[2017-03-25] MEDS ORDERED: Iohexol 350mgl/ml 50 ML ONE (07:34)
[2017-03-25] MEDS ORDERED: Midazolam 2 MG/2 ML VIAL ONE ×2 (07:35→08:00)
[2017-03-25] MEDS ORDERED: Sodium Chloride 0.9% 1,000 ML IV SCH (09:00)
[2017-03-25 09:31] VITALS: TEMP 97.4
[2017-03-25 10:12] VITALS: O2SAT 98
[2017-03-25 14:18] VITALS: BP 144/75; PULSE 71
--- NOTE | 2017-03-25 21:19 | CARDCATH ---
PROCEDURE DATE: 03/25/2017 HISTORY: The patient is a 81-year-old woman who presented with an abnormal stress test. The patient suffers from hypertension, hypercholesterolemia as well as diabetes mellitus. Because of her symptoms of chest pain and abnormal stress test, cardiac catheterization was recommended. PROCEDURE: Left heart catheterization with coronary arteriography and left ventriculogram. There were no complications. I performed moderate sedation which included the presence of an independent trained observer that assisted in monitoring the patient's level of consciousness and physiologic status. After administration of Versed and fentanyl, my intra-service time was 15 minutes. FINDINGS: The findings on catheterization revealed a left ventricle that contracted normally. Estimated ejection fraction was 60%. The patient's coronary arteries revealed the left main artery was unremarkable. The LAD and diagonal vessels revealed intimal irregularities without significant stenoses. The circumflex artery was free of significant disease. The RCA was a dominant vessel and revealed intimal irregularities without significant stenoses. Manual compression was used to close the femoral artery site. The patient tolerated the procedure well. In summary, the procedure revealed intimal irregularities in the coronary tree with no critical lesions. LV function is normal. Given these findings, the patient's treatment should be daily aspirin as well as a strict cardiac risk reduction program. Coleman Mtz MD
--- NOTE | 2017-03-26 00:32 | CARD ---
APPROVED REPORT EKG Measurement Heart [id number] CO [id number] [id number] <Conclusion> Normal sinus rhythm with sinus arrhythmia Normal ECG
== END 2017-03-25 15:50 | disposition home or self-care (01) ==
LOC: CATH 05:56
PROVIDERS: ATTEND Internal Medicine Cardiovascular Disease
DX: R07.9 Chest pain, unspecified (principal); E78.00 Pure hypercholesterolemia, unspecified; I10 Essential (primary) hypertension; E11.9 Type 2 diabetes mellitus without complications; R94.39 Abnormal result of other cardiovascular function study
CPT/HCPCS: 36415; 80048; 85025; 85610; 85730; 86850; 86900; 93458; 99152; C1769; C2629; J1644; J2250; J3010; J7040 ×2